=== PATIENT | female | born 1965 | race Caucasian/White ===

== ENCOUNTER 2016-11-02 09:13 | Inpatient (IN) | payer BC ==
[~2016-11-02] VITALS: Ht 167.6 cm; Wt 105.9 kg
[2016-11-02] MEDS ORDERED: BIOT1TAB2 PO (09:25)
[2016-11-02] MEDS ORDERED: [UNRECOGNIZED DRUG - OTHER] PO (09:25)
[2016-11-02] MEDS ORDERED: OXYC1TAB63 PO (09:26)
[2016-11-02] MEDS ORDERED: AMBI10TA PO (09:26)
[2016-11-02] MEDS ORDERED: DICL75TA PO (09:28)
[2016-11-02] MEDS ORDERED: TRAM50TA PO (09:28)
[2016-11-12] MEDS ORDERED: DOXY1CAP74 PO (07:42)
[2016-11-12] MEDS ORDERED: NORE1TAB PO (07:42)
[2016-11-12 07:44] VITALS: BP 142/75; PULSE 86; RESP 16; TEMP 98.4; O2SAT 100
[2016-11-12] MEDS ORDERED: EXPAREL PERI-ARTICULAR INJECTION (TOTAL VOL. 100 ML) P-ARTICULR SCH ×2 (07:45)
[2016-11-12] MEDS ORDERED: CHLORHEXIDINE GLUCONATE 2 % 1 PACK (2 CLOTHS) TOPICAL PRN (07:45)
[2016-11-12] MEDS ORDERED: METOPROLOL TARTRATE 25 MG TAB PO PRN (07:45)
[2016-11-12] MEDS ORDERED: SODIUM CHLORID 0.9% 500 ML IV PRN (07:45)
[2016-11-12] MEDS ORDERED: INSULIN HUMAN REGULAR 1,000 UNITS/10 ML VIAL SQ PRN (07:45)
[2016-11-12] MEDS ORDERED: ceFAZolin 2 GM PREMIX 50 ML IV SCH (07:45)
[2016-11-12] MEDS ORDERED: POVIDONE IODINE 5% (ANTISEPSIS KIT) 4 APPLICATIONS EACH NARE PRN (07:45)
[2016-11-12] MEDS ORDERED: TRANEXAMIC ACID INJ 915 MG in SODIUM CHLORIDE 0.9% INJ 100 ML IV SCH ×2 (07:45→11:00)
[2016-11-12] MEDS ORDERED: LACTATED RINGER'S 1000 ML IV PRN (07:45)
[2016-11-12] MEDS ORDERED: CHLORHEXIDINE GLUCONATE 4% SOLN 120 ML BTL TOPICAL SCH (07:45)
[2016-11-12] MEDS ORDERED: BUPIVACAINE LIPOSOME PF 1.3% 20 ML VIAL ONE (10:13)
[2016-11-12] MEDS ORDERED: FAMOTIDINE 20 MG/2 ML VIAL ONE (11:00)
[2016-11-12] MEDS ORDERED: DEXAMETHASONE SOD PHOS 4 MG/ML VIAL ONE (11:00)
[2016-11-12] MEDS ORDERED: MIDAZOLAM HCL 2 MG/2 ML VIAL ONE ×2 (11:00→13:43)
[2016-11-12] MEDS ORDERED: TRANEXAMIC ACID INJ 0 MG in SODIUM CHLORIDE 0.9% INJ 100 ML IV SCH (11:15)
[2016-11-12] MEDS ORDERED: Post-op Orders (for Pharmacy) MISC XX ONE (11:15)
[2016-11-12] MEDS ORDERED: ZOLPIDEM TARTRATE 5 MG TAB PO PRN (11:15)
[2016-11-12] MEDS ORDERED: SODIUM CHLORIDE 0.9% FLUSH 5 ML FLUSH IVF PRN (11:15)
[2016-11-12] MEDS ORDERED: ACETAMINOPHEN/HYDROcodone 325 MG/7.5 MG TAB PO PRN ×2 (11:15)
[2016-11-12] MEDS ORDERED: MORPHINE SULFATE 4 MG/ML INJ IV PUSH PRN (11:15)
[2016-11-12] MEDS ORDERED: ONDANSETRON HCL 4 MG/2 ML VIAL IVP PRN (11:15)
[2016-11-12] MEDS ORDERED: LACTATED RINGER'S 1000 ML INJ 1,000 ML IV ONE (12:00)
[2016-11-12] MEDS ORDERED: GENTAMICIN SULFATE 80 MG/2 ML VIAL IRRIGATION ONE (12:00)
[2016-11-12] MEDS ORDERED: PROPOFOL 200 MG/20 ML AMP IV ONE (12:00)
[2016-11-12] MEDS ORDERED: ACETAMINOPHEN 1000 MG/100 ML VIAL IV ONE (13:44)
[2016-11-12] MEDS ORDERED: DO NOT ADM ANY ANTICOAGULANT DRUGS PRN (14:00)
[2016-11-12] MEDS ORDERED: *morphine SULFATE 8 MG/ML PERIprocedure ONLY ONE (14:07)
[2016-11-12] MEDS ORDERED: *HYDROmorphone PF 1 MG VIAL PERIprocedural Use ONLY ONE ×2 (14:15→15:06)
[2016-11-12] MEDS: LACTATED RINGER'S 1000 ML INJ 1,000 ML IV SCH (14:45)
[2016-11-12] MEDS: KETOROLAC TROMETHAMINE 30 MG/ML (IVP) VIAL IVP SCH ×2 (15:00→19:52)
--- NOTE | 2016-11-12 15:37 | RADRPT ---
EXAM DATE/TIME: 11/12/2016 14:43 [facility] COMPARISON: No previous studies available for comparison. INDICATIONS : Post op right knee prosthesis. MEDICAL HISTORY : None. SURGICAL HISTORY : None. ENCOUNTER: Initial ACUITY: 1 day PAIN SCORE: 7/10 LOCATION: Right knee FINDINGS: AP and lateral views of the knee following arthroplasty reveals a prosthesis in anatomic alignment. F racture is not appreciated. Surgical drain is evident. CONCLUSION: Status post total knee arthroplasty. Sulaiman Hoover MD FACR Board Certified Radiologist. This report was verified electronically.
[2016-11-12 16:00] VITALS: BP 108/62; PULSE 62; RESP 15; TEMP 96.7; O2SAT 97
--- NOTE | 2016-11-12 17:05 | PD.CONS ---
HPI Service [facility] Consult Requested By Sonia Rock Reason for Consult Medical management Primary Care Physician Radha Costa Diagnoses: History of Present Illness This is a 50-year-old white female with no significant past medical history, usually very healthy. Has had osteoarthritis of the right knee that has affected her activities of daily living, and her work. She was admitted for elective surgery. She underwent a right total knee arthroplasty. Tolerated procedure well, she's currently working with physical therapy. Having some pain due to increase in activity. Hospitalist services are requested for medical management Review of Systems Constitutional: DENIES: Diaphoretic episodes, Fatigue, Fever, Weight gain, Weight loss, Chills, Dizziness, Change in appetite, Night Sweats Endocrine: DENIES: Abnorml menstrual pattern, Heat/cold intolerance, Polydipsia , Polyuria, Polyphagia Eyes: DENIES: Blurred vision, Diplopia, Eye inflammation, Eye pain, Vision loss , Photosensitivity, Double Vision Ears, nose, mouth, throat: DENIES: Tinnitus, Hearing loss, Vertigo, Nasal discharge, Oral lesions, Throat pain, Hoarseness, Ear Pain, Running Nose, Epistaxis, Sinus Pain, Toothache, Odynophagia Respiratory: DENIES: Apneas, Cough, Snoring, Wheezing, Hemoptysis, Sputum production, Shortness of breath Cardiovascular: DENIES: Chest pain, Palpitations, Syncope, Dyspnea on Exertion , PND, Lower Extremity Edema, Orthopnea, Claudication Gastrointestinal: DENIES: Abdominal pain, Black stools, Bloody stools, Constipation, Diarrhea, Nausea, Vomiting, Difficulty Swallowing, Anorexia Genitourinary: DENIES: Abnormal vaginal bleeding, Dysmenorrhea, Dyspareunia, Sexual dysfunction, Urinary frequency, Urinary incontinence, Urgency, Hematuria , Dysuria, Nocturia, Vaginal discharge Musculoskeletal: COMPLAINS OF: Joint pain Integumentary: DENIES: Abnormal pigmentation, Pruritus, Rash, Nail changes, Breast masses, Breast skin changes, Nipple discharge Hematologic/lymphatic: DENIES: Bruising, Lymphadenopathy Immunologic/allergic: DENIES: Eczema, Urticaria Neurologic: DENIES: Abnormal gait, Headache, Localized weakness, Paresthesias, Seizures, Speech Problems, Tremor, Poor Balance Psychiatric: DENIES: Anxiety, Confusion, Mood changes, Depression, Hallucinations, Agitation, Suicidal Ideation, Homicidal Ideation, Delusions Past Family Social History Past Medical History Osteoarthritis Rosacea Past Surgical History Breast augmentation Abdominoplasty Right ankle joint fusion Left knee arthroscopy Reported Medications Reported Meds & Active Scripts Active Reported Norethindrone-Ethinyl Estradiol 1-5 Mg-Mcg Tab 1 Tab PO DAILY Doxycycline 40 Mg Cap 40 Mg PO DAILY Diclofenac Sodium DR (Diclofenac Sodium) 75 Mg Tabdr 75 Mg PO BID Tramadol (Tramadol HCl) 50 Mg Tab 50 Mg PO Q6H PRN Ambien (Zolpidem Tartrate) 10 Mg Tab 10 Mg PO HS PRN Biotin Maximum Strength (Biotin) 10,000 Mcg Tab 15,000 Mcg PO DAILY Allergies: Coded Allergies: No Known Allergies (Unverified , 11/02/16) Active Ordered Medications Inpatient Medications Acetaminophen/ Hydrocodone Bitart ([place] 7.5-325 Mg) 2 tab Q4H PRN PO PAIN SCALE 5 TO 10; Start 11/12/16 at 11:15 Aspirin (Ecotrin Ec) 81 mg BID PO ; Start 11/12/16 at 21:00 Bupivacaine Liposome 20 ml/ Sodium Chloride 100 ml @ 200 mls/hr ONCE P- ARTICULR Last administered on 11/12/16 12:09; Start 11/12/16 at 07:45; Stop at 14:00; Status DC Cefazolin Sodium/ Dextrose 50 ml @ 100 mls/hr MANAGER WINTER IV Last administered on 11/12/16 11:45; Start 11/12/16 at 07:45; Stop 11/12/16 at 14:28; Status DC Cefazolin Sodium/ Sodium Chloride (Ancef Inj/NS Inj) 100 ml @ 200 mls/hr Q6H IV ; Start 11/12/16 at 18:00; Stop 11/13/16 at 06:29 Chlorhexidine Gluconate (Chlorhexidine 2% Cloth) 3 pack MANAGER WINTER PRN TOPICAL SEE LABEL COMMENTS Last administered on 11/12/16 07:00; Start 11/12/16 at 07:45 ; Stop 11/12/16 at 14:27; Status DC Chlorhexidine Gluconate 1 applic 1 applic ONCE TOPICAL Last administered on 07:51; Start 11/12/16 at 07:45; Stop 11/15/16 at 07:44 Docusate Sodium (Colace) 100 mg BID PO ; Start 11/13/16 at 21:00 Insulin Human Regular See Protocol Table ... MANAGER WINTER PRN SQ SEE PROTOCOL TABLE ; Start 11/12/16 at 07:45; Stop 11/12/16 at 14:27; Status DC IV Flush (NS Flush) 2 ml UNSCH PRN IVF FLUSH AFTER USING IV ACCESS; Start 11/12 at 11:15 Ketorolac Tromethamine (Toradol Inj) 15 mg Q6H IVP Last administered on 15:00; Start 11/12/16 at 15:00; Stop 11/14/16 at 09:01 Lactated Ringer's (Lr 1000 ml Inj) 1,000 ml @ 80 mls/hr [id number] IV Last administered on 11/12/16 14:45; Start 11/12/16 at 14:00 Magnesium Hydroxide (Milk Of Magnesia Liq) 30 ml DAILY PRN PO CONSTIPATION; Start 11/12/16 at 11:15 Metoprolol Tartrate (Lopressor) 25 mg MANAGER WINTER PRN PO SEE LABEL COMMENTS; Start 11/12/16 at 07:45; Stop 11/12/16 at 14:27; Status DC Miscellaneous Information ALL NURSING DEPARTME... UNSCH PRN .XX SEE LABEL COMMENTS; Start 11/12/16 at 14:00; Stop 11/13/16 at 13:59 Miscellaneous Information (Post-op Orders (for Pharmacy)) STAT ONCE XX ; Start 11/12/16 at 11:15; Stop 11/12/16 at 13:50; Status DC Morphine Sulfate (Morphine Inj) 4 mg Q3H PRN IV PUSH BREAKTHROUGH PAIN; Start 11/12/16 at 11:15 Ondansetron HCl (Zofran Inj) 4 mg Q6H PRN IVP NAUSEA OR VOMITING; Start at 11:15 Patient Own Medication PT OWN MED: ETHINYL ESTRADIOL 5 M... DAILY PO ; Start at 09:00; Status Future Hold Povidone Iodine (Betadine 5% Antisepsis Kit) 1 applic MANAGER WINTER PRN EACH NARE SEE LABEL COMMENTS Last administered on 11/12/16 07:51; Start 11/12/16 at 07:45 ; Stop 11/15/16 at 07:44 Sodium Chloride (NS 500 ml Inj) 500 ml @ 30 mls/hr [id number] PRN IV SEE LABEL COMMENTS; Start 11/12/16 at 07:45; Stop 11/12/16 at 14:00; Status DC Sodium Chloride 2 ml 2 ml BID IV FLUSH ; Start 11/12/16 at 21:00 Tranexamic Acid 915 mg/Sodium Chloride 109.15 ml @ 200 mls/ hr ONCE IV Last administered on 11/12/16t 15:23; Start 11/12/16 at 11:00; Stop 11/12/16 at 17:00 Zolpidem Tartrate (Ambien) 5 mg HS PRN PO SLEEP; Start 11/12/16 at 11:15 Family History Reviewed, noncontributory Social History Patient is , lives with . 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 Daily alcohol use, drinks a small glass of wine or cocktail per evening. No smoking. No illegal drug use. Physical Exam Vital Signs Vital Signs Date Time Temp Pulse Resp B/P Pulse Ox O2 Delivery O2 Flow Rate FiO2 11/12/16 15:10 59 14 105/62 99 Room Air 11/12/16 15:00 56 14 101/59 99 Room Air 11/12/16 14:45 57 14 99/76 100 Room Air 11/12/16 14:30 54 14 97/55 100 Room Air 11/12/16 14:15 64 14 114/55 100 Room Air 11/12/16 14:00 97.8 70 14 138/72 100 Nasal Cannula 2 11/12/16 07:44 98.4 86 16 142/75 100 Physical Exam GENERAL: This is a well-nourished, well-developed patient, in no apparent distress. SKIN: No rashes, ecchymoses or lesions. Cool and dry. HEAD: Atraumatic. Normocephalic. No temporal or scalp tenderness. EYES: Pupils equal round and reactive. Extraocular motions intact. No scleral icterus. No injection or drainage. ENT: Nose without bleeding, purulent drainage or septal hematoma. Throat without erythema, tonsillar hypertrophy or exudate. Uvula midline. Airway patent. NECK: Trachea midline. No JVD or lymphadenopathy. Supple, nontender, no meningeal signs. CARDIOVASCULAR: Regular rate and rhythm without murmurs, gallops, or rubs. RESPIRATORY: Clear to auscultation. Breath sounds equal bilaterally. No wheezes , rales, or rhonchi. GASTROINTESTINAL: Abdomen soft, non-tender, nondistended. No hepato-splenomegaly , or palpable masses. No guarding. MUSCULOSKELETAL: Right knee with bulky dressing in place. Intact sensation to the right foot. Bilateral pedal pulses 2+ bilaterally. Able to dorsiflex right foot. NEUROLOGICAL: Awake and alert. Cranial nerves II through XII intact. Motor and sensory grossly within normal limits. Five out of 5 muscle strength in all muscle groups. Normal speech. Laboratory Laboratory Tests Test 11/12/16 07:45 Blood Type B POSITIVE Antibody Screen NEGATIVE Blood Bank Comment Imaging Last Impressions Knee X-Ray 11/12/16 1105 Signed Impressions: Service Date/Time: Saturday, November 12, 2016 14:43 - CONCLUSION: Status post total knee arthroplasty. Sulaiman Hoover MD A/P Diagnosis: (1) Primary osteoarthritis of right knee (2) Status post total right knee replacement Assessment and Plan Thank you for this consultation, we will assist with medical management 50-year-old female with history of arthritis of the right knee, status post right total knee arthroplasty Continue postoperative orthopedic changes Continue with pain management Continue with postoperative antibiotics Aspirin 81 mg by mouth twice a day for DVT prophylaxis per orthopedic recommendations well as SCDs and teds. -Physical therapy per orthopedic instructions Home medications have been reviewed, already initiated Continue with aspirin and SCDs for DVT prophylaxis CBC and BMP in the morning Plan of Care discussed with the patient and her , attending, RN. Further management of the patient will be dependent on the hospital course This patient was seen by myself and Dr. Watkins, this consultation is written on his behalf Amalia Young Nov 12, 2016 17:05
[2016-11-12 18:32] VITALS: O2SAT 98
--- NOTE | 2016-11-12 19:26 | HHI.FF ---
Face to Face Verification Diagnosis: (1) Status post total right knee replacement Physical Therapy Gait training Knee: Total knee, Protocol: Right, Gait training, Full weight bearing Right LE Weight Bearing: WB as tolerated Right LE Range of Motion: Active ROM (AROM, AAROM, PROM, PRE. ROM goal is 0 to 135 degrees. ROM in the OR was 0 to 140 degrees.) Nursing Nursing: Dressing changes Dressing Changes: Daily dressing change, Coverderm/Primapore Additional Instructions Remove steristrips on postop day 14. I have seen patient Aneta Abraham on 11/12/16. My clinical findings support the need for the requested home health care services because: Ltd mobility - disease progression Limited ability to care for self High risk of falls I certify that my clinical findings support that this patient is homebound because: Post-op weakness Unsteady gait/balance Unsafe to leave home unassisted Sudhakar Rock MD ([facility]) Nov 12, 2016 19:25
[2016-11-12] MEDS ORDERED: ASPI-99 PO (19:27)
[2016-11-12] MEDS: ASPIRIN EC 81 MG TABEC PO SCH (19:53)
[2016-11-12] MEDS: SODIUM CHLORIDE 0.9% FLUSH 10 ML FLUSH IV FLUSH SCH (19:53)
[2016-11-12 20:00] VITALS: BP 108/58; PULSE 82; RESP 16; TEMP 96.5; O2SAT 99
[2016-11-13] VITALS: BP 102/55; PULSE 74; RESP 16; TEMP 97.8; O2SAT 99
[2016-11-13] MEDS: KETOROLAC TROMETHAMINE 30 MG/ML (IVP) VIAL IVP SCH ×4 (03:20→20:18)
[2016-11-13] MEDS: LACTATED RINGER'S 1000 ML INJ 1,000 ML IV SCH ×3 (03:21→20:15)
[2016-11-13 04:00] VITALS: BP 109/67; PULSE 79; RESP 16; TEMP 97.3; O2SAT 97
--- NOTE | 2016-11-13 06:19 | PD.ORT.PN ---
Subjective Post Op Day #: 1 Subjective Remarks She is doing well, with little pain. Range of Motion -15 to 80 degrees. Distance Walked 2 feet with PT. Objective Vitals Vital Signs Date Time Temp Pulse Resp B/P Pulse Ox O2 Delivery O2 Flow Rate FiO2 11/13/16 00:00 97.8 74 16 102/55 99 11/12/16 20:00 96.5 82 16 108/58 99 11/12/16 19:38 Nasal Cannula 2.00 11/12/16 18:32 98 Nasal Cannula 2.00 11/12/16 16:00 96.7 62 15 108/62 97 11/12/16 15:10 59 14 105/62 99 Room Air 11/12/16 15:00 56 14 101/59 99 Room Air 11/12/16 14:45 57 14 99/76 100 Room Air 11/12/16 14:30 54 14 97/55 100 Room Air 11/12/16 14:15 64 14 114/55 100 Room Air 11/12/16 14:00 97.8 70 14 138/72 100 Nasal Cannula 2 11/12/16 07:44 98.4 86 16 142/75 100 I/O 11/12/16 11/12/16 11/12/16 11/13/16 11/13/16 11/13/16 07:00 15:00 23:00 07:00 15:00 23:00 Intake Total 1300 ml 1550 ml Output Total 300 ml 225 ml 660 ml Balance 1000 ml 1325 ml -660 ml Intake Oral 850 ml IV Total 700 ml Other 1300 ml Output Drainage Total 225 ml 660 ml Estimated Blood Loss 300 ml # Voids 1 1 # Bowel Movements 0 Imaging Last 24 hours Impressions Knee X-Ray 11/12/16 1105 Signed Impressions: Service Date/Time: Saturday, November 12, 2016 14:43 - CONCLUSION: Status post total knee arthroplasty. Sulaiman Hoover MD Objective Remarks She is resting comfortably, supine in bed in the CPM. The neurovascular status is intact. The dressing is dry and intact. Assessment & Plan Ortho Post Op Day #: 1 Problem List: (1) Status post total right knee replacement Plan: Continue postop care and PT. Assessment and Plan Condition: Good. Orthopaedically stable. DVT prophylaxis: ASA, TEDs, sequentials. Discharge plans : Home with HH. Has appointment. Rx [place] 7.5/325 Sudhakar Rock MD ([facility]) Nov 13, 2016 06:19
[2016-11-13 08:14] VITALS: BP 116/55; PULSE 78; RESP 16; TEMP 98.1; O2SAT 100
[2016-11-13 08:19] LABS: HEMATOCRIT 32.3 % (35.0-46.0); MEAN CELL VOLUME 94.7 FL (80.0-100.0); MEAN CORPUSCULAR HEMOGLOBIN 31.6 PG (27.0-34.0); MEAN CORPUSCULAR HGB CONC 33.3 % (32.0-36.0); PLATELET COUNT 190 TH/MM3 (150-450); RED BLOOD COUNT 3.41 MIL/MM3 (4.00-5.30); REVIEW FLAG FINAL; WHITE BLOOD COUNT 12.8 TH/MM3 (4.0-11.0)
[2016-11-13 08:50] LABS: BICARBONATE 27.1 MEQ/L (21.0-32.0); POTASSIUM 4.1 MEQ/L (3.5-5.1)
[2016-11-13] MEDS: MAGNESIUM HYDROXIDE SUSP 30 ML CUP PO PRN (08:55)
[2016-11-13] MEDS: ASPIRIN EC 81 MG TABEC PO SCH ×2 (08:55→20:19)
[2016-11-13] MEDS: SODIUM CHLORIDE 0.9% FLUSH 10 ML FLUSH IV FLUSH SCH ×2 (08:55→20:19)
[2016-11-13] MEDS ORDERED: ETHINYL ESTRADIOL PO SCH (09:00)
[2016-11-13] MEDS ORDERED: DOXYCYCLINE 40 MG PO SCH (09:00)
[2016-11-13] MEDS ORDERED: BIOTIN PO SCH (09:00)
[2016-11-13] MEDS ORDERED: NORETHINDRONE PO SCH (09:00)
[2016-11-13 11:41] VITALS: BP 122/58; PULSE 72; RESP 16; TEMP 98.4; O2SAT 100
[2016-11-13] MEDS ORDERED: oxyCODONE/ACETAMINOPHEN 5 MG/325 MG TAB PO PRN (12:00)
--- NOTE | 2016-11-13 13:00 | HHI.PR ---
Subjective Remarks some ach at sx site otherwise no complaint ROS for 12 point system is unremarkable Objective Objective Results - Vital Signs Date Time Temp Pulse Resp B/P Pulse Ox O2 Delivery O2 Flow Rate FiO2 11/13/16 11:41 98.4 72 16 122/58 100 11/13/16 08:14 98.1 78 16 116/55 100 11/13/16 04:00 97.3 79 16 109/67 97 11/13/16 00:00 97.8 74 16 102/55 99 11/12/16 20:00 96.5 82 16 108/58 99 11/12/16 19:38 Nasal Cannula 2.00 11/12/16 18:32 98 Nasal Cannula 2.00 11/12/16 16:00 96.7 62 15 108/62 97 11/12/16 15:10 59 14 105/62 99 Room Air 11/12/16 15:00 56 14 101/59 99 Room Air 11/12/16 14:45 57 14 99/76 100 Room Air 11/12/16 14:30 54 14 97/55 100 Room Air 11/12/16 14:15 64 14 114/55 100 Room Air 11/12/16 14:00 97.8 70 14 138/72 100 Nasal Cannula 2 I/O 11/12/16 11/12/16 11/12/16 11/13/16 11/13/16 11/13/16 07:00 15:00 23:00 07:00 15:00 23:00 Intake Total 1300 ml 1550 ml 200 ml Output Total 300 ml 225 ml 660 ml 70 ml Balance 1000 ml 1325 ml -460 ml -70 ml Intake Oral 850 ml 200 ml IV Total 700 ml Other 1300 ml Output Drainage Total 225 ml 660 ml 70 ml Estimated Blood Loss 300 ml # Voids 1 2 # Bowel Movements 0 0 Result Diagram: 11/13/16 0733 11/13/16 0733 Imaging Last Impressions Knee X-Ray 11/12/16 1105 Signed Impressions: Service Date/Time: Saturday, November 12, 2016 14:43 - CONCLUSION: Status post total knee arthroplasty. Sulaiman Hoover MD Other Results Laboratory Tests Test 11/13/16 07:33 White Blood Count 12.8 Red Blood Count 3.41 Hemoglobin 10.8 Hematocrit 32.3 Mean Corpuscular Volume 94.7 Mean Corpuscular Hemoglobin 31.6 Mean Corpuscular Hemoglobin 33.3 Concent Red Cell Distribution Width 12.0 Platelet Count 190 Mean Platelet Volume 10.2 Sodium Level 143 Potassium Level 4.1 Chloride Level 109 Carbon Dioxide Level 27.1 Anion Gap 7 Blood Urea Nitrogen 9 Creatinine 0.68 Estimat Glomerular Filtration 91 Rate Random Glucose 115 Calcium Level 8.2 Physical Exam Physical Exam GENERAL: This is a well-nourished, well-developed patient, in no apparent distress. SKIN: No rashes, ecchymoses or lesions. Cool and dry. HEAD: Atraumatic. Normocephalic. No temporal or scalp tenderness. EYES: Pupils equal round and reactive. Extraocular motions intact. No scleral icterus. No injection or drainage. ENT: Airway patent. NECK: Trachea midline. No JVD. Supple CARDIOVASCULAR: Regular rate and rhythm without murmurs, gallops, or rubs. RESPIRATORY: Clear to auscultation. Breath sounds equal bilaterally. No wheezes , rales, or rhonchi. GASTROINTESTINAL: Abdomen soft, non-tender, nondistended. No hepato-splenomegaly , or palpable masses. No guarding. MUSCULOSKELETAL: Right knee with bulky dressing in place. Intact sensation to the right foot. Bilateral pedal pulses 2+ bilaterally. Able to dorsiflex right foot. NEUROLOGICAL: Awake and alert. Cranial nerves II through XII intact. Motor and sensory grossly within normal limits. Five out of 5 muscle strength in all muscle groups. Normal speech. A/P Assessment and Plan (1) Primary osteoarthritis of right knee (2) Status post total right knee replacement Plan 50-year-old female with history of arthritis of the right knee, status post right total knee arthroplasty Continue postoperative orthopedic changes Continue with pain management Continue with postoperative antibiotics Aspirin 81 mg by mouth twice a day for DVT prophylaxis per orthopedic recommendations well as SCDs and teds. -Physical therapy per orthopedic instructions Home medications have been reviewed, already initiated Continue with aspirin and SCDs for DVT prophylaxis CBC and BMPreport reviewed anemia post op acute blood loss type Plan of Care discussed with the patient Further management of the patient will be dependent on the hospital course Elgin Watkins MD Nov 13, 2016 13:00
[2016-11-13 15:39] VITALS: BP 114/55; PULSE 16; RESP 16; TEMP 98.8; O2SAT 100
[2016-11-13] MEDS: oxyCODONE/ACETAMINOPHEN 5 MG/325 MG TAB PO PRN ×2 (18:19→22:57)
[2016-11-13] MEDS: DOCUSATE SODIUM 100 MG CAP PO SCH (20:18)
[2016-11-13 20:50] VITALS: BP 112/54; PULSE 81; RESP 16; TEMP 97.9; O2SAT 100
[2016-11-14 00:55] VITALS: BP 105/53; PULSE 67; RESP 16; TEMP 97.4; O2SAT 100
[2016-11-14] MEDS: KETOROLAC TROMETHAMINE 30 MG/ML (IVP) VIAL IVP SCH ×2 (04:29→10:11)
[2016-11-14] MEDS: oxyCODONE/ACETAMINOPHEN 5 MG/325 MG TAB PO PRN ×3 (04:29→15:13)
[2016-11-14 04:55] VITALS: BP 109/54; PULSE 75; RESP 16; TEMP 97.8; O2SAT 100
--- NOTE | 2016-11-14 06:56 | PD.ORT.PN ---
Subjective Post Op Day #: 2 Subjective Remarks She is doing well. Yesterday, she had more pain. She did well with Percocet. Range of Motion -5 to 98 degrees. Distance Walked 180 feet with PT. Objective Vitals Vital Signs Date Time Temp Pulse Resp B/P Pulse Ox O2 Delivery O2 Flow Rate FiO2 11/14/16 04:55 97.8 75 16 109/54 100 11/14/16 00:55 97.4 67 16 105/53 100 11/13/16 20:50 97.9 81 16 112/54 100 11/13/16 15:39 98.8 16 16 114/55 100 11/13/16 11:41 98.4 72 16 122/58 100 11/13/16 08:14 98.1 78 16 116/55 100 I/O 11/13/16 11/13/16 11/13/16 11/14/16 11/14/16 11/14/16 07:00 15:00 23:00 07:00 15:00 23:00 Intake Total 200 ml 720 ml 480 ml 240 ml Output Total 660 ml 140 ml 170 ml 100 ml Balance -460 ml 580 ml 310 ml 140 ml Intake Oral 200 ml 720 ml 480 ml 240 ml IV Total 0 ml Output Drainage Total 660 ml 140 ml 170 ml 100 ml # Voids 2 4 1 2 # Bowel Movements 0 0 0 0 Result Diagram: 11/13/16 0733 11/13/16 0733 Imaging Last 24 hours Impressions Knee X-Ray 11/12/16 1105 Signed Impressions: Service Date/Time: Saturday, November 12, 2016 14:43 - CONCLUSION: Status post total knee arthroplasty. Sulaiman Hoover MD Objective Remarks She is resting comfortably, supine in bed in the CPM. The neurovascular status is intact. The dressing is dry and intact. Assessment & Plan Ortho Post Op Day #: 2 Problem List: (1) Status post total right knee replacement Plan: Continue postop care and PT. Assessment and Plan Condition: Good. Orthopaedically stable. DVT prophylaxis: ASA, TEDs, sequentials. Discharge plans : Home with [facility]. Has appointment. Rx Percocet 5/325 Sudhakar Rock MD ([facility]) Nov 14, 2016 06:56
[2016-11-14 07:29] LABS: REVIEW FLAG FINAL
[2016-11-14 07:33] VITALS: BP 104/53; PULSE 74; RESP 17; TEMP 97.3; O2SAT 99
[2016-11-14] MEDS ORDERED: OXYC1TAB63 PO (07:46)
[2016-11-14 09:24] VITALS: O2SAT 96
[2016-11-14] MEDS: ASPIRIN EC 81 MG TABEC PO SCH (10:10)
[2016-11-14] MEDS: DOCUSATE SODIUM 100 MG CAP PO SCH (10:10)
[2016-11-14] MEDS: MAGNESIUM HYDROXIDE SUSP 30 ML CUP PO PRN (10:11)
[2016-11-14] MEDS: SODIUM CHLORIDE 0.9% FLUSH 10 ML FLUSH IV FLUSH SCH (10:11)
[2016-11-14 11:53] VITALS: BP 95/63; PULSE 81; RESP 17; TEMP 96.1; O2SAT 100
--- NOTE | 2016-11-14 11:57 | HHI.PR ---
Subjective Remarks some ach at sx site otherwise no complaint ROS for 10 point system is unremarkable Objective Objective Results - Vital Signs Date Time Temp Pulse Resp B/P Pulse Ox O2 Delivery O2 Flow Rate FiO2 11/14/16 11:10 16 11/14/16 11:10 16 11/14/16 09:24 96 21 11/14/16 07:33 97.3 74 17 104/53 99 11/14/16 04:55 97.8 75 16 109/54 100 11/14/16 00:55 97.4 67 16 105/53 100 11/13/16 20:50 97.9 81 16 112/54 100 11/13/16 15:39 98.8 16 16 114/55 100 I/O 11/13/16 11/13/16 11/13/16 11/14/16 11/14/16 11/14/16 07:00 15:00 23:00 07:00 15:00 23:00 Intake Total 200 ml 720 ml 480 ml 240 ml Output Total 660 ml 140 ml 170 ml 100 ml Balance -460 ml 580 ml 310 ml 140 ml Intake Oral 200 ml 720 ml 480 ml 240 ml IV Total 0 ml Output Drainage Total 660 ml 140 ml 170 ml 100 ml # Voids 2 4 1 2 # Bowel Movements 0 0 0 0 Result Diagram: 11/14/16 0649 11/13/16 0733 Imaging Last Impressions Knee X-Ray 11/12/16 1105 Signed Impressions: Service Date/Time: Saturday, November 12, 2016 14:43 - CONCLUSION: Status post total knee arthroplasty. Sulaiman Hoover MD Other Results Laboratory Tests Test 11/14/16 06:49 Hemoglobin 9.3 Hematocrit 27.0 Physical Exam Physical Exam GENERAL: This is a well-nourished, well-developed patient, in no apparent distress. SKIN: No rashes, ecchymoses or lesions. Cool and dry. HEAD: Atraumatic. Normocephalic. EYES: Extraocular motions intact. No scleral icterus. No injection or drainage. ENT: Airway patent. NECK: Trachea midline. No JVD. Supple CARDIOVASCULAR: Regular rate and rhythm without murmurs, gallops, or rubs. RESPIRATORY: Clear to auscultation. Breath sounds equal bilaterally. No wheezes , rales, or rhonchi. GASTROINTESTINAL: Abdomen soft, non-tender, nondistended. No hepato-splenomegaly , or palpable masses. No guarding. MUSCULOSKELETAL: Right knee with bulky dressing in place with drainage to. Intact sensation to the right foot. Bilateral pedal pulses 2+ bilaterally. Able to dorsiflex right foot. NEUROLOGICAL: Awake and alert. Cranial nerves II through XII intact. Motor and sensory grossly within normal limits. Five out of 5 muscle strength in all muscle groups. Normal speech. A/P Assessment and Plan (1) Primary osteoarthritis of right knee (2) Status post total right knee replacement Plan 50-year-old female with history of arthritis of the right knee, status post right total knee arthroplasty Continue postoperative orthopedic changes Continue with pain management Continue with postoperative antibiotics Aspirin 81 mg by mouth twice a day for DVT prophylaxis per orthopedic recommendations well as SCDs and teds. -Physical therapy per orthopedic instructions Home medications have been reviewed, already initiated Continue with aspirin and SCDs for DVT prophylaxis CBC reviewed stable H&H anemia post op acute blood loss type Plan of Care discussed with the patient Elgin Watkins MD Nov 14, 2016 11:57
--- NOTE | 2016-11-14 13:19 | MP ---
cc: Sudhakar TOLBERT. DATE OF SURGERY 11/12/2016 PREOPERATIVE DIAGNOSIS Primary osteoarthritis right knee POSTOPERATIVE DIAGNOSIS Primary osteoarthritis right knee with synovitis OPERATION PERFORMED Right total knee arthroplasty with [employer] Triathlon prosthesis (uncemented). SURGEON Brooke Tolbert MD DRUPAL ARCHITECT CORNELIO GrantA ANESTHESIA Spinal with supplemental adductor canal block by Billy Strange MD and local by the undersigned. INDICATIONS AND FINDINGS This 50-year-old woman has had two years worth of right knee pain progressively worsening to the point that she has marked limitation of ambulation to less than an hour because of pain. She has pain when attempting to stand or walk. She has difficulty with snapping and popping. She has pain on standing from a seated position. Treatment has included nonsteroidal anti-inflammatory agents, activity modification, arthroscopic surgery, intra-articular corticosteroids, ambulatory aids. She has not responded to these treatments. Physical findings showed diffuse crepitation in the knee on range of motion with tenderness on range of motion. There was an effusion. There is no significant laxity. Imaging studies showed significant degenerative change in the knee with irregularity in the articular surfaces that were tricompartmental. This included areas of eburnation as well as osteophytes that were tricompartmental. There was narrowing of the joint lines. Operative findings showed severe degenerative change with irregularity throughout the knee on the medial, lateral and patellofemoral compartments. In addition, there appeared to be a diffuse synovitis that had almost the appearance of rheumatoid disease and some areas that appeared to actually possibly be pannus formation. The prosthesis used was a [employer] Triathlon prosthesis. The femur was a size 5 right cruciate-retaining porous coated. The tibia was a Tritanium baseplate size 5 with a 9 mm cruciate-retaining spacer of X3 polyethylene. The patella was a Tritanium backed asymmetric patella size 32. PROCEDURE The patient was brought to the clean-air operating suite and a spinal anesthetic and adductor canal block were initiated by Dr. Strange. The patient was then positioned in a supine position with a small bolster under the right hip. Pneumatic tourniquet was placed about the right thigh. The limb was then prepped with alcohol, Hibiclens and Chloraprep and draped in the usual manner with the hip draped free. She received prophylactic antibiotics in the form of Ancef according to protocol on arrival in the operating room. She received Tranexamic acid also on arrival in the operating room according to protocol. An appropriate time-out procedure was carried out. Local anesthesia was administered into the incision site. An incision was then made from about three fingerbreadths above the superior medial pole of the patella down to the tibial tubercle. The incision was deepened through subcutaneous tissues to the retinacular structures which were exposed medially and laterally. A medial retinacular incision was complete from the superior medial pole of patella down to the tibial tubercle and up into the quadriceps tendon splitting it longitudinally in the medial one-third. The patella was reflected. The infrapatellar fat pad was debulked. Medial and lateral dissection was carried out. The posterior surface of the patella was excised with the oscillating saw taking care to prevent injury to ligamentous structures. A patella protector was applied. Fenestrations were made in the distal end of the femur and proximal end of the tibia for intramedullary referencing guides. The distal femoral cutting guide and jig were assembled for a 5 degrees 8-mm cut. The cutting block was stabilized with pins. The jig was removed. The distal femoral cut was completed with the oscillating saw. The sizing guide was then positioned on along white size line and the epicondylar axis. This was stabilized with pins. The size was determined to be between a size 5 and 6. The template size was 4. A size 6 cutting block was positioned in place. This was stabilized with pins. Anterior and posterior cuts were made followed by posterior and anterior chamfer cuts. The size 5 guide was then positioned in place and checked to see whether this would be appropriate. It was determined that this would be more appropriate than a 6, therefore the anterior and posterior cuts were made followed by the posterior and anterior chamfer cuts. The fenestration in the end of the femur was filled with bone plug. The tibial cutting guide and jig were then assembled and positioned appropriately for rotation. This was pinned in place. The depth of cut was verified off the lateral side with a 9-mm cut. The cutting block was stabilized with pins. The jig was removed. The proximal tibial cut was then made with the oscillating saw taking care to prevent injury to neurovascular and ligamentous structures. The proximal tibial bone was then removed. Medial and lateral meniscectomies were completed. The curved osteotome was used for removal of the osteophytes from the posterior aspect of the femur. Local anesthesia was administered throughout the posterior capsule medially and laterally. The tibial baseplate trial was positioned for a size 5. This appeared to be appropriate. The 9-mm spacer was inserted. The femoral trial was then inserted and impacted into place. The tibial baseplate was pinned in position in the appropriate position. The patella drill holes were made through the patella drill guide. The trial patella was inserted. The knee was taken through a range of motion which was easily 0 degrees extension to 140 degrees of flexion with excellent stability in flexion and extension and appropriate tracking of the patella. The femoral drill holes were made. The femoral and patella trials were removed. The tibial spacer trial was removed. The tibial punch was impacted through its guide and then removed. The tibial drill guide was positioned and drill holes made. The cut ends of bone were cleaned with pulse lavage. The tibial baseplate was impacted into place and seated appropriately. The spacer was inserted. The femoral component was impacted into place and seated appropriately. The patella prosthesis was placed on the posterior aspect of the patella and stabilized with a patella vice. The knee was taken through a range of motion which was easily 0 degrees extension to 140 degrees of flexion with excellent stability in flexion and extension and appropriate patellofemoral tracking. The remainder of the Exparel was injected throughout the knee. Drains were brought out the superolateral aspect of the suprapatellar pouch. The wound was then closed in layers using 0 Vicryl interrupted [id number] suture sutures for repair of retinacular and capsular structures, 2-0 Vicryl interrupted simple sutures with buried knots for the subcutaneous tissues and 4-0 Monocryl continuous subcuticular closure for the skin. The wound was dressed with Steri-Strips followed by dry dressing, sterile Sof-Rol, cooling pad, further sterile Sof-Rol and Quintin bandage from the base of the toe to midthigh. The patient was transferred from the operating room to the recovery room in satisfactory condition having tolerated the procedure well. Counts were correct. Specimens none. Estimated blood loss 300 mL. MD GENEVA Hernández/PAM /1:51 PM /1:07 PM
== END 2016-11-14 16:14 | disposition home health service (06) | DRG 470 ==
LOC: HSDI 11-12 07:13 → N06B 11-12 15:18
PROVIDERS: ADMIT Orthopaedic Surgery; ATTEND Orthopaedic Surgery
PROC: 3E0T3BZ Introduction of Anesthetic Agent into Peripheral Nerves and Plexi, Percutaneous Approach (ICD-10-PCS; 2016-11-12)
PROC: 0SRC0JA Replacement of Right Knee Joint with Synthetic Substitute, Uncemented, Open Approach (ICD-10-PCS; principal; 2016-11-12 11:24)
DX: M17.11 Unilateral primary osteoarthritis, right knee (principal); D62 Acute posthemorrhagic anemia; M65.9 Synovitis and tenosynovitis, unspecified; L71.9 Rosacea, unspecified
CPT/HCPCS: 73560; 80048; 85014; 85018; 85027; 86850; 86900; 86901; 88305; 94150; C1776; C9290; J0131; J0690; J1100; J1170; J1580; J1885; J2250; J2270; J7120

== ENCOUNTER → 2016-11-02 | Outpatient (CLI) | payer BC ==
[~2016-11-02] MED LIST: AMBI10TA PO; ASPI-99 PO; BIOT1TAB2 PO; DICL75TA PO; DOXY1CAP74 PO; NORE1TAB PO; OXYC1TAB63 PO; TRAM50TA PO; [UNRECOGNIZED DRUG - OTHER] PO
--- NOTE | 2016-11-02 22:20 | EKG ---
Date Performed: 11/02/2016 Time Performed: 10:00:13 PTAGE: 50 years EKG: Sinus rhythm NORMAL ECG NO PREVIOUS TRACING DOCTOR: Glory Grajeda Interpretating Date/Time 11/02/2016 22:18:33
== END ==
LOC: CPRE 09:08
PROVIDERS: ATTEND Orthopaedic Surgery
DX: Z01.810 Encounter for preprocedural cardiovascular examination (principal); M17.11 Unilateral primary osteoarthritis, right knee; M79.609 Pain in unspecified limb
CPT/HCPCS: 93005

== ENCOUNTER → 2017-02-15 | Outpatient (CLI) | payer BC ==
[~2017-02-15] MED LIST changes: +MELO-1 PO; -[UNRECOGNIZED DRUG - OTHER] PO
== END ==
LOC: CPRE 09:00
PROVIDERS: ATTEND Orthopaedic Surgery
DX: M17.11 Unilateral primary osteoarthritis, right knee (principal); M79.609 Pain in unspecified limb

== ENCOUNTER 2017-03-04 05:20 | Inpatient (IN) | payer BC ==
[~2017-03-04] VITALS: Ht 167.6 cm; Wt 88.3 kg
[~2017-03-04 05:20] MED LIST changes: -DICL75TA PO; -OXYC1TAB63 PO
[2017-03-04] MEDS ORDERED: CHLORHEXIDINE GLUCONATE 4% SOLN 120 ML BTL TOPICAL SCH (05:45)
[2017-03-04] MEDS ORDERED: ceFAZolin 2 GM PREMIX 50 ML IV SCH ×2 (05:45)
[2017-03-04] MEDS ORDERED: SODIUM CHLORID 0.9% 500 ML IV PRN (05:45)
[2017-03-04] MEDS ORDERED: METOPROLOL TARTRATE 25 MG TAB PO PRN (05:45)
[2017-03-04] MEDS ORDERED: POVIDONE IODINE 5% (ANTISEPSIS KIT) 4 APPLICATIONS EACH NARE PRN (05:45)
[2017-03-04] MEDS ORDERED: CHLORHEXIDINE GLUCONATE 2 % 1 PACK (2 CLOTHS) TOPICAL PRN (05:45)
[2017-03-04] MEDS ORDERED: INSULIN HUMAN REGULAR 1,000 UNITS/10 ML VIAL SQ PRN (05:45)
[2017-03-04] MEDS ORDERED: TRANEXAMIC ACID INJ 880 MG in SODIUM CHLORIDE 0.9% INJ 100 ML IV SCH ×4 (05:45)
[2017-03-04] MEDS ORDERED: LACTATED RINGER'S 1000 ML IV PRN (05:45)
[2017-03-04] MEDS ORDERED: EXPAREL PERI-ARTICULAR INJECTION (TOTAL VOL. 100 ML) P-ARTICULR SCH ×2 (05:45)
[2017-03-04] MEDS ORDERED: GENTAMICIN SULFATE 80 MG/2 ML VIAL ONE (06:18)
[2017-03-04] MEDS ORDERED: BUPIVACAINE LIPOSOME PF 1.3% 20 ML VIAL ONE (07:04)
--- NOTE | 2017-03-04 07:10 | HHI.FF ---
Face to Face Verification Diagnosis: (1) Status post total left knee replacement Physical Therapy Knee: Total knee, Protocol: Left, Gait training, Full weight bearing Left LE Weight Bearing: WB as tolerated Left LE Range of Motion: Active ROM (AROM, AAROM, PROM. ROM goal is 0 to 135 degrees, which was the ROM in the OR.) Nursing Nursing: Dressing changes Dressing Changes: Daily dressing change, Coverderm/Primapore Additional Instructions Remove steristrips on postop day 14. I have seen patient Aneta Abraham on 03/04/17. My clinical findings support the need for the requested home health care services because: Ltd mobility - disease progression Limited ability to care for self High risk of falls I certify that my clinical findings support that this patient is homebound because: Post-op weakness Unsteady gait/balance Unsafe to leave home unassisted Sudhakar Rock MD (Charles) Mar 04, 2017 07:10
[2017-03-04] MEDS ORDERED: Post-op Orders (for Pharmacy) MISC XX ONE (07:15)
[2017-03-04] MEDS ORDERED: TRANEXAMIC ACID INJ 0 MG in SODIUM CHLORIDE 0.9% INJ 100 ML IV SCH (07:15)
[2017-03-04] MEDS ORDERED: traMADol HCL 50 MG TAB PO PRN (07:15)
[2017-03-04] MEDS ORDERED: oxyCODONE/ACETAMINOPHEN 5 MG/325 MG TAB PO PRN (07:15)
[2017-03-04] MEDS ORDERED: SODIUM CHLORIDE 0.9% FLUSH 5 ML FLUSH IVF PRN (07:15)
[2017-03-04] MEDS ORDERED: PROPOFOL 500 MG/50 ML INJ 200 ML ONE (07:21)
[2017-03-04] MEDS ORDERED: MORPHINE SULFATE 4 MG/ML INJ IV PUSH PRN (08:00)
[2017-03-04] MEDS ORDERED: ONDANSETRON HCL 4 MG/2 ML VIAL IVP PRN (08:00)
[2017-03-04] MEDS ORDERED: MAGNESIUM HYDROXIDE SUSP 30 ML CUP PO PRN (08:00)
[2017-03-04] MEDS ORDERED: NORETHINDRONE ETHINYL ESTRADIOL PO SCH (09:00)
[2017-03-04] MEDS: ASPIRIN EC 81 MG TABEC PO SCH ×2 (09:00→21:41)
[2017-03-04] MEDS ORDERED: BIOTIN PO SCH (09:00)
[2017-03-04] MEDS: SODIUM CHLORIDE 0.9% FLUSH 5 ML FLUSH IVF SCH ×2 (09:00→20:10)
[2017-03-04] MEDS ORDERED: DOXYCYCLINE 40 MG PO SCH (09:00)
--- NOTE | 2017-03-04 09:29 | HHI.PR ---
Immediate Post Op Note Procedure Date: Mar 04, 2017 Pre Op Diagnosis: (1) Primary osteoarthritis of left knee Post Op Diagnosis: (1) Primary osteoarthritis of left knee Surgeon: Chan Rock MD Egg Processor(s): LILIAM Perez Procedure: Left total knee arthroplasty with [employer] Triathlon prosthesis, uncemented. Estimated blood loss: 250 ml Anesthesia: Regional Block (adductor canal), Spinal, Local (Exparel) Drains: Hemovac (x2) IVF Patient to: PACU Patient Condition: Good Sudhakar Rock MD (Charles) Mar 04, 2017 09:29
[2017-03-04] MEDS: LACTATED RINGER'S 1000 ML INJ 1,000 ML IV SCH ×2 (10:00→19:32)
[2017-03-04] MEDS ORDERED: DO NOT ADM ANY ANTICOAGULANT DRUGS PRN (10:30)
[2017-03-04] MEDS: KETOROLAC TROMETHAMINE 30 MG/ML (IVP) VIAL IVP SCH ×3 (10:32→21:43)
[2017-03-04] MEDS ORDERED: ROCURONIUM INJ 50 MG/5 ML SYRINGE IV PUSH ONE (12:00)
[2017-03-04] MEDS ORDERED: PHENYLEPH/NS 1000 MCG/10 ML SYR IV ONE (12:00)
[2017-03-04] MEDS ORDERED: PROPOFOL 200 MG/20 ML AMP IV ONE (12:00)
[2017-03-04] MEDS ORDERED: LACTATED RINGER'S 1000 ML INJ 1,000 ML IV ONE (12:00)
[2017-03-04] MEDS ORDERED: ONDANSETRON HCL 4 MG/2 ML VIAL IV PUSH ONE (12:00)
[2017-03-04] MEDS ORDERED: DEXAMETHASONE SOD PHOS 4 MG/ML VIAL IV ONE (12:00)
[2017-03-04] MEDS ORDERED: SODIUM CHLORIDE 0.9% 20 ML VIAL IV ONE (12:00)
[2017-03-04] MEDS ORDERED: LIDOCAINE HCL 1% PF 5 ML AMPULE OTHER ONE (12:00)
[2017-03-04] MEDS ORDERED: MIDAZOLAM HCL 2 MG/2 ML VIAL IV ONE (12:00)
[2017-03-04] MEDS ORDERED: *morphine SULFATE 8 MG/ML PERIprocedure ONLY ONE (12:05)
--- NOTE | 2017-03-04 12:39 | PD.CONS ---
HPI Service [facility] ([place], [place])ists Consult Requested By Reason for Consult medical management Primary Care Physician Radha Costa D.O. Diagnoses: History of Present Illness patient is a 51 y/o female with history of osteoarthritis who underwent left total knee arthroplasty today. at the time of my evaluation she was resting comfortably with no acute distress. pain is controlled. she denies any chest pain, sob, nausea or dizziness. Review of Systems Constitutional: DENIES: Fever, Weight loss, Chills, Night Sweats Eyes: DENIES: Blurred vision, Diplopia, Vision loss, Double Vision Ears, nose, mouth, throat: DENIES: Tinnitus, Vertigo, Throat pain, Epistaxis Respiratory: DENIES: Apneas, Cough, Snoring, Wheezing, Hemoptysis, Sputum production, Shortness of breath Cardiovascular: DENIES: Chest pain, Palpitations, Syncope, Dyspnea on Exertion , PND, Lower Extremity Edema, Orthopnea, Claudication Gastrointestinal: DENIES: Abdominal pain, Black stools, Bloody stools, Constipation, Diarrhea, Nausea, Vomiting, Difficulty Swallowing, Anorexia Genitourinary: DENIES: Urinary frequency, Urgency, Hematuria, Dysuria Musculoskeletal: COMPLAINS OF: Joint pain (left knee), DENIES: Muscle aches, Stiffness, Joint Swelling Integumentary: DENIES: Rash Neurologic: DENIES: Abnormal gait, Headache, Localized weakness, Paresthesias, Seizures, Speech Problems, Tremor, Poor Balance Psychiatric: DENIES: Anxiety, Confusion, Mood changes, Depression, Hallucinations, Agitation, Suicidal Ideation, Homicidal Ideation, Delusions Past Family Social History Allergies: Coded Allergies: acetaminophen (Verified Allergy, Severe, Itching, 03/04/17) hydrocodone (Verified Allergy, Severe, Itching, 03/04/17) Past Medical History osteoarthritis Past Surgical History right knee/ ankle surgery. Reported Medications ultram ambien biotin Active Ordered Medications Current Medications Lactated Ringer's 1,000 ml @ 30 mls/hr Q24H PRN IV SEE LABEL COMMENTS; Start 03/04/17 at 05:45; Stop 03/04/17 at 08:43; Status DC Sodium Chloride 500 ml @ 30 mls/hr [id number] PRN IV SEE LABEL COMMENTS; Start at 05:45; Stop 03/04/17 at 08:43; Status DC Metoprolol Tartrate (Lopressor) 25 mg ACQUISITION PROFESSIONAL PRN PO SEE LABEL COMMENTS; Start 03/04/17 at 05:45; Stop 03/07/17 at 05:44 Povidone Iodine (Betadine 5% Antisepsis Kit) 1 applic ACQUISITION PROFESSIONAL PRN EACH NARE SEE LABEL COMMENTS; Start 03/04/17 at 05:45; Stop 03/07/17 at 05:44 Chlorhexidine Gluconate (Chlorhexidine 2% Cloth) 3 pack ACQUISITION PROFESSIONAL PRN TOPICAL SEE LABEL COMMENTS; Start 03/04/17 at 05:45; Stop 03/07/17 at 05:44 Insulin Human Regular (NovoLIN R INJ) See Protocol Table ... ACQUISITION PROFESSIONAL PRN SQ SEE PROTOCOL TABLE; Start 03/04/17 at 05:45; Stop 03/07/17 at 05:44 Chlorhexidine Gluconate (Hibiclens 4% Top Soln) 1 applic ONCE TOPICAL ; Start 03/04/17 at 05:45; Stop 03/07/17 at 05:44 Cefazolin Sodium/ Dextrose 50 ml @ 100 mls/hr ACQUISITION PROFESSIONAL IV ; Start 03/04/17 at 05:45; Stop 03/04/17 at 05:45; Status DC Tranexamic Acid 880 mg/Sodium Chloride 108.8 ml @ 200 mls/hr ONCE IV Last administered on 03/04/17 08:13; Start 03/04/17 at 05:45; Stop 03/04/17 at 16 :00 Tranexamic Acid 880 mg/Sodium Chloride 108.8 ml @ 200 mls/hr ONCE IV Last administered on 03/04/17 10:32; Start 03/04/17 at 05:45; Stop 03/04/17 at 16 :00 Bupivacaine Liposome 20 ml/ Sodium Chloride 100 ml @ 200 mls/hr ONCE P- ARTICULR Last administered on 03/04/17 08:14; Start 03/04/17 at 05:45; Stop 03/04/17 at 17:00 Cefazolin Sodium/ Dextrose 50 ml @ 100 mls/hr ACQUISITION PROFESSIONAL IV Last administered on 03/04/17 08:11; Start 03/04/17 at 05:45 Gentamicin Sulfate (Gentamicin Inj) 80 mg STK-MED ONCE .ROUTE Last administered on 03/04/17 08:12; Start 03/04/17 at 06:18; Stop 03/04/17 at 06 :19; Status DC Lactated Ringer's 1,000 ml @ 80 mls/hr [id number] IV Last administered on t 10:00; Start 03/04/17 at 07:02 IV Flush (NS Flush) 2 ml UNSCH PRN IVF FLUSH AFTER USING IV ACCESS; Start at 07:15 IV Flush (NS Flush) 2 ml BID IVF ; Start 03/04/17 at 09:00 Cefazolin Sodium 1000 mg/Sodium Chloride 100 ml @ 200 mls/hr Q6H IV ; Start at 15:00; Stop 03/05/17 at 03:29 Miscellaneous Information (Post-op Orders (for Pharmacy)) STAT ONCE XX ; Start 03/04/17 at 07:15; Stop 03/04/17 at 10:30; Status DC Morphine Sulfate (Morphine Inj) 4 mg Q3H PRN IV PUSH BREAKTHROUGH PAIN; Start 03/04/17 at 08:00 Oxycodone/ Acetaminophen (Percocet 5-325 Mg) 1 tab Q4H PRN PO PAIN LESS THAN 5 ON SCALE; Start 03/04/17 at 08:00 Oxycodone/ Acetaminophen (Percocet 5-325 Mg) 2 tab Q4H PRN PO PAIN SCALE 5 TO 10; Start 03/04/17 at 07:15 Ketorolac Tromethamine (Toradol Inj) 15 mg Q6H IVP Last administered on 10:32; Start 03/04/17 at 11:00; Stop 03/06/17 at 05:01 Tranexamic Acid / Sodium Chloride 100 ml @ 200 mls/hr UNSCH IV ; Start at 07:15; Stop 03/04/17 at 08:37; Status DC Ondansetron HCl (Zofran Inj) 4 mg Q6H PRN IVP NAUSEA OR VOMITING; Start at 08:00 Docusate Sodium (Colace) 100 mg BID PO ; Start 03/05/17 at 21:00 Zolpidem Tartrate (Ambien) 5 mg HS PRN PO SLEEP; Start 03/04/17 at 08:00 Magnesium Hydroxide (Milk Of Magnesia Liq) 30 ml DAILY PRN PO CONSTIPATION; Start 03/04/17 at 08:00 Aspirin (Ecotrin Ec) 81 mg BID PO ; Start 03/04/17 at 09:00 Bupivacaine Liposome (Exparel Pf 1.3% Inj) 20 ml STK-MED ONCE .ROUTE ; Start at 07:04; Stop 03/04/17 at 07:05; Status DC Tramadol HCl (Ultram) 50 mg Q6H PRN PO PAIN; Start 03/04/17 at 07:15; Stop at 08:38; Status DC Non-Formulary Medication 15,000 mcg DAILY PO ; Start 03/04/17 at 09:00; Stop 03/04/17 at 09:00; Status DC Non-Formulary Medication 40 mg DAILY PO ; Start 03/04/17 at 09:00; Stop at 09:00; Status DC Patient Own Medication PT OWN MED: (Norethindrone-Ethin... DAILY PO ; Start at 09:00; Status Future Hold Propofol 200 ml @ As Directed STK-MED ONCE .ROUTE ; Start 03/04/17 at 07:21; Stop 03/04/17 at 07:22; Status DC Miscellaneous Information ALL NURSING DEPARTME... UNSCH PRN .XX SEE LABEL COMMENTS; Start 03/04/17 at 10:30; Stop 03/05/17 at 10:29 Morphine Sulfate (*morphine INJ PERIprocedure ONLY) 8 mg STK-MED ONCE .ROUTE ; Start 03/04/17 at 12:05; Stop 03/04/17 at 12:06; Status DC Family History stroke in father. Social History doesn't smoke. drinks occasionally. Physical Exam Vital Signs Vital Signs Date Time Temp Pulse Resp B/P (MAP) Pulse Ox O2 Delivery O2 Flow Rate FiO2 03/04/17 11:00 65 18 117/56 (76) 100 Room Air 03/04/17 10:45 63 18 124/62 (82) 100 Room Air 03/04/17 10:30 57 18 117/58 (77) 100 03/04/17 10:15 60 18 120/60 (80) 97 Nasal Cannula 2 03/04/17 09:52 97.4 72 18 121/75 (90) 95 Nasal Cannula 2 03/04/17 06:00 98.7 82 16 140/73 (95) 99 Physical Exam GENERAL: This is a well-nourished, well-developed patient, in no apparent distress. SKIN: No rashes, ecchymoses or lesions. Cool and dry. HEAD: Atraumatic. Normocephalic. No temporal or scalp tenderness. EYES: Pupils equal round and reactive. Extraocular motions intact. No scleral icterus. No injection or drainage. ENT: Nose without bleeding, purulent drainage or septal hematoma. Throat without erythema, tonsillar hypertrophy or exudate. Uvula midline. Airway patent. NECK: Trachea midline. No JVD or lymphadenopathy. Supple, nontender, no meningeal signs. CARDIOVASCULAR: Regular rate and rhythm without murmurs, gallops, or rubs. RESPIRATORY: Clear to auscultation. Breath sounds equal bilaterally. No wheezes , rales, or rhonchi. GASTROINTESTINAL: Abdomen soft, non-tender, nondistended. No hepato-splenomegaly , or palpable masses. No guarding. MUSCULOSKELETAL: left knee covered with clean dressing. NEUROLOGICAL: Awake and alert. Cranial nerves II through XII intact. Motor and sensory grossly within normal limits. Five out of 5 muscle strength in all muscle groups. Normal speech. Assessment and Plan Assessment and Plan A/P - osteoarthritis of the left knee- s/p left total knee arthroplasty continue with pain control- PT consulted. management per ortho. -DVT prophylaxis- per ortho. thank you for the consult. Discussed Condition With the patient. Claudia Odell MD Mar 04, 2017 12:39
--- NOTE | 2017-03-04 12:50 | MP ---
cc: Saul TOLBERT. DATE OF SURGERY 03/04/2017 PREOPERATIVE DIAGNOSIS Primary osteoarthritis left knee. POSTOPERATIVE DIAGNOSIS Primary osteoarthritis left knee. OPERATION PERFORMED Left total knee arthroplasty with [employer] [place] Triathlon prosthesis (uncemented). SURGEON Sudhakar Tolbert MD BATCH MIXER OPERATOR LILIAM Perez ANESTHESIA Spinal with supplemental adductor canal block and local. INDICATIONS AND FINDINGS This 51-year-old woman has had longstanding left knee pain which has progressively worsened to the point that she has marked limitation of ambulation tolerance. She has rest pain. She has pain with weightbearing. She has difficulty standing from a seated position. She has swelling in the knee. She has crepitation. She has difficulty doing her job which requires a great deal of standing because of the pain. She has not responded to conservative methods including analgesics, anti-inflammatory agents, activity modification, exercise, intra-articular corticosteroids, viscosupplementation and ambulatory aids. She is also had physical therapy without benefit. Physical findings show crepitation throughout the entire range of motion with tenderness on motion. An effusion is present. There is there are some osteophytes. Imaging studies including x-rays and MRI show significant osteoarthritis in the left knee with loss of articular cartilage to exposed subchondral bones with areas osteophytes and irregularity throughout the knee. PROSTHESIS USED [place] Triathlon prosthesis. The femur is a size 4 cruciate-retaining uncemented. The tibia is a size 4 Tritanium baseplate with a 9-mm spacer, also cruciate-retaining and X3 polyethylene. The patella is a size 35 asymmetric Tritanium backed patella. PROCEDURE The patient was brought to the operating room and a spinal anesthetic was administered as well as an adductor canal block regional. She was then placed in a supine position on the operating table with bolster under the left hip and pneumatic tourniquet about the left thigh. The limb was then prepped with alcohol, Hibiclens and Chloraprep and draped in the usual manner with the knee draped free. An appropriate time-out procedure was carried out. Local anesthesia was administered in the incision site prior to making incision. An anterior incision was made from about three fingerbreadths above the superior medial pole of the patella down to the tibial tubercle on the medial side. The incision was deepened through the subcutaneous tissues to the retinacular structures which were exposed medially and laterally. The medial retinacular incision was made from the superior medial pole of the patella down to the tibial tubercle and up into the quadriceps tendon splitting it longitudinally in the medial one-third. The patella was reflected. Infrapatellar fat pad was debulked. Medial and lateral dissection was carried out. Osteophytes were trimmed. The posterior surface of the patella was excised using the oscillating saw. A patella protector was applied. Patella was slipped into the lateral gutter. Fenestration was were made in the distal femur and proximal tibial flow for intramedullary referencing guides. The distal femoral cutting guide and jig were assembled for a ___-mm cut. The cutting block was stabilized with pins. The jig was removed. The distal femoral cut was then completed with the oscillating saw. The sizing guide was positioned along [place] line in the epicondylar axis. After pinning this in place, the size was determined to be a size 4. A four-in-one cutting block was positioned in place. Anterior and posterior cuts were made followed by posterior and anterior chamfer cuts. Osteophytes were trimmed. Attention was directed the tibia. Medial and lateral meniscectomies were completed. The tibial cutting guide and jig were assembled and positioned appropriately as far as rotation. This was stabilized with pins. The depth of cut was verified with a stylus. The cutting block was stabilized with pins. The jig was removed. The depth of cut was verified with the spacer guide. The tibial cut was then made with the oscillating saw taking care to prevent injury to neurovascular and ligamentous structures. The posterior capsule and medial and lateral capsules were injected with Exparel. The tibial baseplate trial was positioned in place for a size 4. Size five would have too much overhang. The 9-mm spacer was inserted. The femoral component was impacted into place and seated appropriately. The stability was checked and appeared to be adequate. An 11-mm spacer would be too tight. The tibial baseplate trial was stabilized with pins in appropriate rotation. The patellar drill holes were made for the 35-mm patella. The trial for the prosthesis was placed. The knee was taken through a range of motion which was 0 degrees extension with 135 degrees of flexion. The stability was excellent. The tracking of the patella was appropriate. The femoral drill holes were made. The patella and femoral trial prostheses were removed. Bone plugs were placed into the distal femur and proximal tibia. A cyst in the proximal tibia had been packed with bone graft as well. The tibial punch was impacted through its guide and then removed. After removal of baseplate was completed, the tibial drill guide was positioned in place. Drill holes were made. This was then and removed. The cut ends of bone were cleaned with pulse lavage. The tibial baseplate was then impacted into place and seated appropriately. The spacer was inserted. The femoral component was then impacted into place and seated appropriately. The patella was positioned in place and stabilized with the patella vice. The knee was taken through a range of motion which was easily 0 degrees extension and 135 degrees of flexion. Drains were brought out the superolateral aspect of the suprapatellar pouch. The remainder of the Exparel was injected throughout the knee. The wound was then closed in layers using 0 Vicryl interrupted [id number] sutures for the retinacular and capsular structures, 2-0 Vicryl interrupted simple sutures with buried knots for the subcutaneous tissues and 4-0 Monocryl continuous subcuticular closure for the skin. The wound was dressed with Steri-Strips followed by dry dressing, sterile Sof-Rol, cooling pad, further sterile Sof-Rol and Quintin bandages from the base of the toe to midthigh. The patient was transferred from the operating room to the recovery room in satisfactory condition having tolerated the procedure well. COUNTS Correct. SPECIMENS None. ESTIMATED BLOOD LOSS 250 mL. MD GENEVA Hernández/MADELINE /9:31 AM /12:34 PM
--- NOTE | 2017-03-04 13:15 | RADRPT ---
EXAM DATE/TIME: 03/04/2017 10:14 [place] COMPARISON: No previous studies available for comparison. INDICATIONS : Post op. MEDICAL HISTORY : None. SURGICAL HISTORY : None. ENCOUNTER: Initial ACUITY: 1 day PAIN SCORE: 2/10 LOCATION: Left knee FINDINGS: Two view examination of the left knee demonstrates no evidence of fracture or dislocation. No hardwar e loosening. Left knee arthroplasty. Postsurgical drain. CONCLUSION: Left knee arthroplasty. Patrick Desai MD on March 04, 2017 at 11:21 Board Certified Radiologist. This report was verified electronically.
[2017-03-04 14:30] VITALS: BP 118/77; PULSE 77; RESP 16; TEMP 97; O2SAT 98
[2017-03-04 16:00] VITALS: BP 123/69; PULSE 81; RESP 16; TEMP 96.5; O2SAT 100
[2017-03-04 17:59] VITALS: O2SAT 98
[2017-03-04 20:55] VITALS: BP 119/59; PULSE 87; RESP 17; TEMP 98.3; O2SAT 99
[2017-03-05] VITALS (7 sets, daily range): BP systolic 93–125; BP diastolic 48–62; PULSE 70–85; RESP 16; TEMP 96.8–98.5; O2SAT 95–100
[2017-03-05] MEDS: KETOROLAC TROMETHAMINE 30 MG/ML (IVP) VIAL IVP SCH ×4 (05:15→22:53)
--- NOTE | 2017-03-05 06:23 | PD.ORT.PN ---
Subjective Post Op Day #: 1 Subjective Remarks She has been up walking 4 times. The knee feels fairly good so far. Range of Motion 0 to 94 degrees. Distance Walked 32 feet with PT. Objective Vitals Vital Signs Date Time Temp Pulse Resp B/P (MAP) Pulse Ox O2 Delivery O2 Flow Rate FiO2 03/05/17 00:05 98.1 82 16 96/51 (66) 100 03/04/17 20:55 98.3 87 17 119/59 (79) 99 03/04/17 17:59 98 21 03/04/17 16:55 18 03/04/17 16:00 96.5 81 16 123/69 (87) 100 03/04/17 14:30 97.0 77 16 118/77 (91) 98 03/04/17 14:00 74 18 120/61 (80) 97 Room Air 03/04/17 13:00 76 18 120/61 (80) 97 Room Air 03/04/17 12:00 83 18 121/62 (81) 97 Room Air 03/04/17 11:00 65 18 117/56 (76) 100 Room Air 03/04/17 10:45 63 18 124/62 (82) 100 Room Air 03/04/17 10:30 57 18 117/58 (77) 100 03/04/17 10:15 60 18 120/60 (80) 97 Nasal Cannula 2 03/04/17 09:52 97.4 72 18 121/75 (90) 95 Nasal Cannula 2 I/O 03/04/17 03/04/17 03/04/17 03/05/17 03/05/17 03/05/17 07:00 15:00 23:00 07:00 15:00 23:00 Intake Total 1500 ml 240 ml Output Total 680 ml 250 ml Balance 820 ml -250 ml 240 ml Intake Oral 240 ml Other 1500 ml Output Drainage Total 430 ml 250 ml Other 250 ml # Voids 2 2 # Bowel Movements 0 Imaging Last 24 hours Impressions Knee X-Ray 03/04/17 0702 Signed Impressions: Service Date/Time: Saturday, March 04, 2017 10:14 - CONCLUSION: Left knee arthroplasty. Patrick Desai MD Objective Remarks She is resting comfortably supine in bed in the [facility]. The dressing is dry and intact. The neurovascular status is intact. Assessment & Plan Ortho Post Op Day #: 1 Problem List: (1) Status post total left knee replacement ICD Codes: Z96.652 - Presence of left artificial knee joint Plan: Continue postop care and PT. Assessment and Plan Condition: Good. Orthopaedically stable. DVT prophylaxis: TEDs, sequentials, ASA. Discharge plans: Home with [facility]. Sudhakar Rock MD ([place]) Mar 05, 2017 06:23
[2017-03-05] MEDS: LACTATED RINGER'S 1000 ML INJ 1,000 ML IV SCH ×2 (08:02→20:32)
--- NOTE | 2017-03-05 08:57 | HHI.PR ---
Subjective Remarks in no acute distress. pain is fairly controlled. no other complaints. Objective Vitals Vital Signs Date Time Temp Pulse Resp B/P (MAP) Pulse Ox O2 Delivery O2 Flow Rate FiO2 03/05/17 03:35 98.4 75 16 93/49 (64) 99 03/05/17 00:05 98.1 82 16 96/51 (66) 100 03/04/17 20:55 98.3 87 17 119/59 (79) 99 03/04/17 17:59 98 21 03/04/17 16:55 18 03/04/17 16:00 96.5 81 16 123/69 (87) 100 03/04/17 14:30 97.0 77 16 118/77 (91) 98 03/04/17 14:00 74 18 120/61 (80) 97 Room Air 03/04/17 13:00 76 18 120/61 (80) 97 Room Air 03/04/17 12:00 83 18 121/62 (81) 97 Room Air 03/04/17 11:00 65 18 117/56 (76) 100 Room Air 03/04/17 10:45 63 18 124/62 (82) 100 Room Air 03/04/17 10:30 57 18 117/58 (77) 100 03/04/17 10:15 60 18 120/60 (80) 97 Nasal Cannula 2 03/04/17 09:52 97.4 72 18 121/75 (90) 95 Nasal Cannula 2 I/O 03/04/17 03/04/17 03/04/17 03/05/17 03/05/17 03/05/17 06:59 14:59 22:59 06:59 14:59 22:59 Intake Total 1500 ml 580 ml 340 ml Output Total 380 ml 550 ml 200 ml Balance 1120 ml 30 ml 140 ml Intake Oral 480 ml 240 ml IV Total 100 ml 100 ml Other 1500 ml Output Drainage Total 130 ml 550 ml 200 ml Other 250 ml # Voids 4 2 # Bowel Movements 0 0 Objective Remarks GENERAL: This is a well-nourished, well-developed patient, in no apparent distress. CARDIOVASCULAR: Regular rate and regular rhythm without murmurs, gallops, or rubs. RESPIRATORY: Clear to auscultation. Breath sounds equal bilaterally. No wheezes , rales, or rhonchi. GASTROINTESTINAL: Abdomen soft, non-tender, nondistended. Normal, active bowel sounds MUSCULOSKELETAL:left knee covered with clean dressing. NEURO: Alert & Oriented x4 to person, place, time, situation. Moves all ext x4 Medications and IVs Current Medications Lactated Ringer's 1,000 ml @ 30 mls/hr Q24H PRN IV SEE LABEL COMMENTS; Start 03/04/17 at 05:45; Stop 03/04/17 at 08:43; Status DC Sodium Chloride 500 ml @ 30 mls/hr [id number] PRN IV SEE LABEL COMMENTS; Start at 05:45; Stop 03/04/17 at 08:43; Status DC Metoprolol Tartrate (Lopressor) 25 mg PUGGER HELPER PRN PO SEE LABEL COMMENTS; Start 03/04/17 at 05:45; Stop 03/07/17 at 05:44 Povidone Iodine (Betadine 5% Antisepsis Kit) 1 applic PUGGER HELPER PRN EACH NARE SEE LABEL COMMENTS; Start 03/04/17 at 05:45; Stop 03/07/17 at 05:44 Chlorhexidine Gluconate (Chlorhexidine 2% Cloth) 3 pack PUGGER HELPER PRN TOPICAL SEE LABEL COMMENTS; Start 03/04/17 at 05:45; Stop 03/07/17 at 05:44 Insulin Human Regular (NovoLIN R INJ) See Protocol Table ... PUGGER HELPER PRN SQ SEE PROTOCOL TABLE; Start 03/04/17 at 05:45; Stop 03/07/17 at 05:44 Chlorhexidine Gluconate (Hibiclens 4% Top Soln) 1 applic ONCE TOPICAL ; Start 03/04/17 at 05:45; Stop 03/07/17 at 05:44 Cefazolin Sodium/ Dextrose 50 ml @ 100 mls/hr PUGGER HELPER IV ; Start 03/04/17 at 05:45; Stop 03/04/17 at 05:45; Status DC Tranexamic Acid 880 mg/Sodium Chloride 108.8 ml @ 200 mls/hr ONCE IV Last administered on 03/04/17t 08:13; Start 03/04/17 at 05:45; Stop 03/04/17 at 16 :00; Status DC Tranexamic Acid 880 mg/Sodium Chloride 108.8 ml @ 200 mls/hr ONCE IV Last administered on 03/04/17t 10:32; Start 03/04/17 at 05:45; Stop 03/04/17 at 16 :00; Status DC Bupivacaine Liposome 20 ml/ Sodium Chloride 100 ml @ 200 mls/hr ONCE P- ARTICULR Last administered on 03/04/17 08:14; Start 03/04/17 at 05:45; Stop 03/04/17 at 17:00; Status DC Cefazolin Sodium/ Dextrose 50 ml @ 100 mls/hr PUGGER HELPER IV Last administered on 03/04/17 08:11; Start 03/04/17 at 05:45 Gentamicin Sulfate (Gentamicin Inj) 80 mg STK-MED ONCE .ROUTE Last administered on 03/04/17 08:12; Start 03/04/17 at 06:18; Stop 03/04/17 at 06 :19; Status DC Lactated Ringer's 1,000 ml @ 80 mls/hr [id number] IV Last administered on 10:00; Start 03/04/17 at 07:02 IV Flush (NS Flush) 2 ml UNSCH PRN IVF FLUSH AFTER USING IV ACCESS; Start at 07:15 IV Flush (NS Flush) 2 ml BID IVF Last administered on 03/04/17 20:10; Start 03/04/17 at 09:00 Cefazolin Sodium 1000 mg/Sodium Chloride 100 ml @ 200 mls/hr Q6H IV Last administered on 03/05/17 02:36; Start 03/04/17 at 15:00; Stop 03/05/17 at 03 :29; Status DC Miscellaneous Information (Post-op Orders (for Pharmacy)) STAT ONCE XX ; Start 03/04/17 at 07:15; Stop 03/04/17 at 10:30; Status DC Morphine Sulfate (Morphine Inj) 4 mg Q3H PRN IV PUSH BREAKTHROUGH PAIN; Start 03/04/17 at 08:00 Oxycodone/ Acetaminophen (Percocet 5-325 Mg) 1 tab Q4H PRN PO PAIN LESS THAN 5 ON SCALE Last administered on 03/05/17 00:00; Start 03/04/17 at 08:00 Oxycodone/ Acetaminophen (Percocet 5-325 Mg) 2 tab Q4H PRN PO PAIN SCALE 5 TO 10; Start 03/04/17 at 07:15 Ketorolac Tromethamine (Toradol Inj) 15 mg Q6H IVP Last administered on 05:15; Start 03/04/17 at 11:00; Stop 03/06/17 at 05:01 Tranexamic Acid / Sodium Chloride 100 ml @ 200 mls/hr UNSCH IV ; Start at 07:15; Stop 03/04/17 at 08:37; Status DC Ondansetron HCl (Zofran Inj) 4 mg Q6H PRN IVP NAUSEA OR VOMITING; Start at 08:00 Docusate Sodium (Colace) 100 mg BID PO ; Start 03/05/17 at 21:00 Zolpidem Tartrate (Ambien) 5 mg HS PRN PO SLEEP Last administered on 00:00; Start 03/04/17 at 08:00 Magnesium Hydroxide (Milk Of Magnesia Liq) 30 ml DAILY PRN PO CONSTIPATION; Start 03/04/17 at 08:00 Aspirin (Ecotrin Ec) 81 mg BID PO Last administered on 03/04/17t 21:41; Start 03/04/17 at 09:00 Bupivacaine Liposome (Exparel Pf 1.3% Inj) 20 ml STK-MED ONCE .ROUTE ; Start at 07:04; Stop 03/04/17 at 07:05; Status DC Tramadol HCl (Ultram) 50 mg Q6H PRN PO PAIN; Start 03/04/17 at 07:15; Stop at 08:38; Status DC Non-Formulary Medication 15,000 mcg DAILY PO ; Start 03/04/17 at 09:00; Stop 03/04/17 at 09:00; Status DC Non-Formulary Medication 40 mg DAILY PO ; Start 03/04/17 at 09:00; Stop at 09:00; Status DC Patient Own Medication PT OWN MED: (Norethindrone-Ethin... DAILY PO ; Start at 09:00; Status Future Hold Propofol 200 ml @ As Directed STK-MED ONCE .ROUTE ; Start 03/04/17 at 07:21; Stop 03/04/17 at 07:22; Status DC Miscellaneous Information ALL NURSING DEPARTME... UNSCH PRN .XX SEE LABEL COMMENTS; Start 03/04/17 at 10:30; Stop 03/05/17 at 10:29 Morphine Sulfate (*morphine INJ PERIprocedure ONLY) 8 mg STK-MED ONCE .ROUTE Last administered on 03/04/17t 12:05; Start 03/04/17 at 12:05; Stop 03/04/17 at 12:06; Status DC A/P Assessment and Plan A/P - osteoarthritis of the left knee- s/p left total knee arthroplasty continue with pain control- PT consulted. monitor H/H - post-op ; H/H pending today. management per ortho. -DVT prophylaxis- on aspirin- per ortho. Claudia Odell MD Mar 05, 2017 08:57
[2017-03-05] MEDS: SODIUM CHLORIDE 0.9% FLUSH 5 ML FLUSH IVF SCH ×2 (09:00→21:00)
[2017-03-05 09:03] LABS: HEMATOCRIT 27.4 % (35.0-46.0); REVIEW FLAG FINAL
[2017-03-05] MEDS: ASPIRIN EC 81 MG TABEC PO SCH ×2 (09:10→22:53)
[2017-03-05] MEDS: oxyCODONE/ACETAMINOPHEN 5 MG/325 MG TAB PO PRN ×2 (15:33)
[2017-03-05] MEDS: DOCUSATE SODIUM 100 MG CAP PO SCH (22:52)
[2017-03-05] MEDS: ZOLPIDEM TARTRATE 5 MG TAB PO PRN ×2 (22:52)
[2017-03-06 00:30] VITALS: BP 113/60; PULSE 86; RESP 16; TEMP 98.1; O2SAT 100
[2017-03-06] MEDS: oxyCODONE/ACETAMINOPHEN 5 MG/325 MG TAB PO PRN ×3 (00:36→12:25)
[2017-03-06 04:35] VITALS: BP 95/47; PULSE 80; RESP 16; TEMP 97.8; O2SAT 98
[2017-03-06] MEDS: KETOROLAC TROMETHAMINE 30 MG/ML (IVP) VIAL IVP SCH (06:01)
--- NOTE | 2017-03-06 07:39 | PD.ORT.PN ---
Subjective Post Op Day #: 2 Subjective Remarks She has been up walking to the class and back. The knee feels better than the last one did. Range of Motion 0 to 102 degrees. Distance Walked 200 feet with PT. Objective Vitals Vital Signs Date Time Temp Pulse Resp B/P (MAP) Pulse Ox O2 Delivery O2 Flow Rate FiO2 03/06/17 04:35 97.8 80 16 95/47 (63) 98 03/06/17 00:30 98.1 86 16 113/60 (77) 100 03/05/17 20:50 98.4 78 16 125/62 (83) 100 03/05/17 20:20 21 03/05/17 19:35 Room Air 03/05/17 16:33 18 03/05/17 16:00 96.8 85 16 116/52 (73) 95 03/05/17 12:00 97.6 74 16 103/48 (66) 100 03/05/17 09:28 99 03/05/17 08:00 98.5 70 16 107/54 (71) 100 I/O 03/05/17 03/05/17 03/05/17 03/06/17 03/06/17 03/06/17 07:00 15:00 23:00 07:00 15:00 23:00 Intake Total 340 ml 600 ml 480 ml 360 ml Output Total 200 ml 245 ml 50 ml Balance 140 ml 600 ml 235 ml 310 ml Intake Oral 240 ml 600 ml 480 ml 360 ml IV Total 100 ml Output Drainage Total 200 ml 245 ml 50 ml # Voids 2 3 2 1 # Bowel Movements 0 0 0 Result Diagram: 03/05/17 0736 Imaging Last 24 hours Impressions Knee X-Ray 03/04/17 07 Signed Impressions: Service Date/Time: Saturday, March 04, 2017 10:14 - CONCLUSION: Left knee arthroplasty. Patrick Desai MD Objective Remarks She is resting comfortably supine in bed in the [facility]. The dressing is dry and intact. The neurovascular status is intact. Assessment & Plan Ortho Post Op Day #: 2 Problem List: (1) Status post total left knee replacement ICD Codes: Z96.652 - Presence of left artificial knee joint Plan: Continue postop care and PT. Assessment and Plan Condition: Good. Orthopaedically stable. DVT prophylaxis: TEDs, sequentials, ASA. Discharge plans: Home with [facility]. Rx: Percocet 5/325 Sudhakar Rock MD ([place]) Mar 06, 2017 07:39
[2017-03-06 08:00] VITALS: BP 106/56; PULSE 77; RESP 18; TEMP 97.4; O2SAT 97
[2017-03-06] MEDS ORDERED: OXYC1TAB63 PO (08:19)
[2017-03-06] MEDS ORDERED: ASPI-99 PO (08:19)
--- NOTE | 2017-03-06 08:42 | HHI.PR ---
Subjective Remarks in no distress. no new complaints. pain is controlled. d/w the RN and no acute issues over night. Objective Vitals Vital Signs Date Time Temp Pulse Resp B/P (MAP) Pulse Ox O2 Delivery O2 Flow Rate FiO2 03/06/17 04:35 97.8 80 16 95/47 (63) 98 03/06/17 00:30 98.1 86 16 113/60 (77) 100 03/05/17 20:50 98.4 78 16 125/62 (83) 100 03/05/17 20:20 21 03/05/17 19:35 Room Air 03/05/17 16:33 18 03/05/17 16:00 96.8 85 16 116/52 (73) 95 03/05/17 12:00 97.6 74 16 103/48 (66) 100 03/05/17 09:28 99 I/O 03/05/17 03/05/17 03/05/17 03/06/17 03/06/17 03/06/17 07:00 15:00 23:00 07:00 15:00 23:00 Intake Total 340 ml 600 ml 480 ml 360 ml Output Total 200 ml 245 ml 50 ml Balance 140 ml 600 ml 235 ml 310 ml Intake Oral 240 ml 600 ml 480 ml 360 ml IV Total 100 ml Output Drainage Total 200 ml 245 ml 50 ml # Voids 2 3 2 1 # Bowel Movements 0 0 0 Result Diagram: 03/05/17 0736 Imaging Last Impressions Knee X-Ray 03/04/17 07 Signed Impressions: Service Date/Time: Saturday, March 04, 2017 10:14 - CONCLUSION: Left knee arthroplasty. Patrick Desai MD Objective Remarks GENERAL: This is a well-nourished, well-developed patient, in no apparent distress. CARDIOVASCULAR: Regular rate and regular rhythm without murmurs, gallops, or rubs. RESPIRATORY: Clear to auscultation. Breath sounds equal bilaterally. No wheezes , rales, or rhonchi. GASTROINTESTINAL: Abdomen soft, non-tender, nondistended. Normal, active bowel sounds MUSCULOSKELETAL:left knee covered with clean dressing. NEURO: Alert & Oriented x4 to person, place, time, situation. Moves all ext x4 Medications and IVs Current Medications Lactated Ringer's 1,000 ml @ 30 mls/hr Q24H PRN IV SEE LABEL COMMENTS; Start 03/04/17 at 05:45; Stop 03/04/17 at 08:43; Status DC Sodium Chloride 500 ml @ 30 mls/hr [id number] PRN IV SEE LABEL COMMENTS; Start at 05:45; Stop 03/04/17 at 08:43; Status DC Metoprolol Tartrate (Lopressor) 25 mg LEAD MECHANIC PRN PO SEE LABEL COMMENTS; Start 03/04/17 at 05:45; Stop 03/07/17 at 05:44 Povidone Iodine (Betadine 5% Antisepsis Kit) 1 applic LEAD MECHANIC PRN EACH NARE SEE LABEL COMMENTS; Start 03/04/17 at 05:45; Stop 03/07/17 at 05:44 Chlorhexidine Gluconate (Chlorhexidine 2% Cloth) 3 pack LEAD MECHANIC PRN TOPICAL SEE LABEL COMMENTS; Start 03/04/17 at 05:45; Stop 03/07/17 at 05:44 Insulin Human Regular (NovoLIN R INJ) See Protocol Table ... LEAD MECHANIC PRN SQ SEE PROTOCOL TABLE; Start 03/04/17 at 05:45; Stop 03/07/17 at 05:44 Chlorhexidine Gluconate (Hibiclens 4% Top Soln) 1 applic ONCE TOPICAL ; Start 03/04/17 at 05:45; Stop 03/07/17 at 05:44 Cefazolin Sodium/ Dextrose 50 ml @ 100 mls/hr LEAD MECHANIC IV ; Start 03/04/17 at 05:45; Stop 03/04/17 at 05:45; Status DC Tranexamic Acid 880 mg/Sodium Chloride 108.8 ml @ 200 mls/hr ONCE IV Last administered on 03/04/17 08:13; Start 03/04/17 at 05:45; Stop 03/04/17 at 16 :00; Status DC Tranexamic Acid 880 mg/Sodium Chloride 108.8 ml @ 200 mls/hr ONCE IV Last administered on 03/04/17 10:32; Start 03/04/17 at 05:45; Stop 03/04/17 at 16 :00; Status DC Bupivacaine Liposome 20 ml/ Sodium Chloride 100 ml @ 200 mls/hr ONCE P- ARTICULR Last administered on 03/04/17 08:14; Start 03/04/17 at 05:45; Stop 03/04/17 at 17:00; Status DC Cefazolin Sodium/ Dextrose 50 ml @ 100 mls/hr LEAD MECHANIC IV Last administered on 03/04/17 08:11; Start 03/04/17 at 05:45 Gentamicin Sulfate (Gentamicin Inj) 80 mg STK-MED ONCE .ROUTE Last administered on 03/04/17 08:12; Start 03/04/17 at 06:18; Stop 03/04/17 at 06 :19; Status DC Lactated Ringer's 1,000 ml @ 80 mls/hr [id number] IV Last administered on 10:00; Start 03/04/17 at 07:02 IV Flush (NS Flush) 2 ml UNSCH PRN IVF FLUSH AFTER USING IV ACCESS; Start at 07:15 IV Flush (NS Flush) 2 ml BID IVF Last administered on 03/05/17 21:00; Start 03/04/17 at 09:00 Cefazolin Sodium 1000 mg/Sodium Chloride 100 ml @ 200 mls/hr Q6H IV Last administered on 03/05/17 02:36; Start 03/04/17 at 15:00; Stop 03/05/17 at 03 :29; Status DC Miscellaneous Information (Post-op Orders (for Pharmacy)) STAT ONCE XX ; Start 03/04/17 at 07:15; Stop 03/04/17 at 10:30; Status DC Morphine Sulfate (Morphine Inj) 4 mg Q3H PRN IV PUSH BREAKTHROUGH PAIN; Start 03/04/17 at 08:00 Oxycodone/ Acetaminophen (Percocet 5-325 Mg) 1 tab Q4H PRN PO PAIN LESS THAN 5 ON SCALE Last administered on 03/06/17 06:01; Start 03/04/17 at 08:00 Oxycodone/ Acetaminophen (Percocet 5-325 Mg) 2 tab Q4H PRN PO PAIN SCALE 5 TO 10; Start 03/04/17 at 07:15 Ketorolac Tromethamine (Toradol Inj) 15 mg Q6H IVP Last administered on 06:01; Start 03/04/17 at 11:00; Stop 03/06/17 at 05:01; Status DC Tranexamic Acid / Sodium Chloride 100 ml @ 200 mls/hr UNSCH IV ; Start at 07:15; Stop 03/04/17 at 08:37; Status DC Ondansetron HCl (Zofran Inj) 4 mg Q6H PRN IVP NAUSEA OR VOMITING; Start at 08:00 Docusate Sodium (Colace) 100 mg BID PO Last administered on 03/05/17 22:52; Start 03/05/17 at 21:00 Zolpidem Tartrate (Ambien) 5 mg HS PRN PO SLEEP Last administered on 22:52; Start 03/04/17 at 08:00 Magnesium Hydroxide (Milk Of Magnesia Liq) 30 ml DAILY PRN PO CONSTIPATION; Start 03/04/17 at 08:00 Aspirin (Ecotrin Ec) 81 mg BID PO Last administered on 03/05/17 22:53; Start 03/04/17 at 09:00 Bupivacaine Liposome (Exparel Pf 1.3% Inj) 20 ml STK-MED ONCE .ROUTE ; Start at 07:04; Stop 03/04/17 at 07:05; Status DC Tramadol HCl (Ultram) 50 mg Q6H PRN PO PAIN; Start 03/04/17 at 07:15; Stop at 08:38; Status DC Non-Formulary Medication 15,000 mcg DAILY PO ; Start 03/04/17 at 09:00; Stop 03/04/17 at 09:00; Status DC Non-Formulary Medication 40 mg DAILY PO ; Start 03/04/17 at 09:00; Stop at 09:00; Status DC Patient Own Medication PT OWN MED: (Norethindrone-Ethin... DAILY PO ; Start at 09:00; Status Future Hold Propofol 200 ml @ As Directed STK-MED ONCE .ROUTE ; Start 03/04/17 at 07:21; Stop 03/04/17 at 07:22; Status DC Miscellaneous Information ALL NURSING DEPARTME... UNSCH PRN .XX SEE LABEL COMMENTS; Start 03/04/17 at 10:30; Stop 03/05/17 at 10:29; Status DC Morphine Sulfate (*morphine INJ PERIprocedure ONLY) 8 mg STK-MED ONCE .ROUTE Last administered on 03/04/17t 12:05; Start 03/04/17 at 12:05; Stop 03/04/17 at 12:06; Status DC A/P Assessment and Plan A/P - osteoarthritis of the left knee- s/p left total knee arthroplasty continue with pain control- PT consulted. management per ortho. -DVT prophylaxis-- aspirin-per ortho. Discharge Planning dc planning per ortho. Claudia Odell MD Mar 06, 2017 08:42
[2017-03-06 08:49] LABS: HEMATOCRIT 24.1 % (35.0-46.0); REVIEW FLAG FINAL
[2017-03-06] MEDS: SODIUM CHLORIDE 0.9% FLUSH 5 ML FLUSH IVF SCH (09:00)
[2017-03-06] MEDS: LACTATED RINGER'S 1000 ML INJ 1,000 ML IV SCH (09:02)
[2017-03-06] MEDS: DOCUSATE SODIUM 100 MG CAP PO SCH (10:21)
[2017-03-06] MEDS: ASPIRIN EC 81 MG TABEC PO SCH (10:22)
[2017-03-06 12:00] VITALS: BP 98/64; PULSE 91; RESP 18; TEMP 98.8; O2SAT 100
== END 2017-03-06 15:08 | disposition home health service (06) | DRG 470 ==
LOC: HSDI 05:20 → N06B 14:17
PROVIDERS: ADMIT Orthopaedic Surgery; ATTEND Orthopaedic Surgery
PROC: 3E0T3BZ Introduction of Anesthetic Agent into Peripheral Nerves and Plexi, Percutaneous Approach (ICD-10-PCS; 2017-03-04)
PROC: 0SRD0JA Replacement of Left Knee Joint with Synthetic Substitute, Uncemented, Open Approach (ICD-10-PCS; principal; 2017-03-04 06:58)
DX: M17.12 Unilateral primary osteoarthritis, left knee (principal)
CPT/HCPCS: 73560; 85014; 85018; 86850; 86900; 86901; 94150; C1776; C9290; J0690; J1100; J1580; J1885; J2250; J2270; J2370; J2405; J3010; J7120